=== PATIENT | male | born 1950 | race Caucasian/White ===

== ENCOUNTER 2016-12-03 18:49 | Inpatient (IN) | payer MEDICARE ==
[~2016-12-03] VITALS: Ht 172.7 cm; Wt 62.7 kg
[~2016-12-03 18:49] MED LIST: ACET-66 PO; FAMO20 PO; GABA-533 PO; HYD50 PO; HYDR-3965 PO; LEVE250T55 PO; LISI-662 PO; QUET25TA PO; RISP1 PO; SERT100T12 PO; SIMV-260 PO; TRAZ-144 PO
[2016-12-03] MEDS ORDERED: SERT100T12 PO (19:06)
[2016-12-03] MEDS ORDERED: FOLI1 PO (19:06)
[2016-12-03] MEDS ORDERED: LISI10TA7 PO (19:06)
[2016-12-03] MEDS ORDERED: FURO40 PO (19:06)
[2016-12-03] MEDS ORDERED: TAMS0.4C32 PO (19:06)
[2016-12-03] MEDS ORDERED: GABA-531 PO (19:06)
[2016-12-03] MEDS ORDERED: THIA100 PO (19:06)
[2016-12-03] MEDS ORDERED: ALBUTEROL SULFATE 5 MG/ML 20 ML NEB SOLN [BULK] NEB ONE (19:15)
[2016-12-03] MEDS ORDERED: FUROSEMIDE 40 MG/4 ML VIAL IVP ONE (19:15)
[2016-12-03] MEDS ORDERED: MethylPREDNISolone SOD SUCC 125 MG/2 ML VIAL IVP ONE (19:15)
[2016-12-03] MEDS ORDERED: ASPIRIN 325 MG TABLET PO ONE (19:15)
[2016-12-03] MEDS ORDERED: CefTRIAXone 1 GM/DEXTROSE 50 ML IV ONE (19:15)
[2016-12-03] MEDS ORDERED: IPRATROPIUM BROMIDE 0.5 MG/2.5 ML NEB SOLUTION NEB ONE (19:15)
[2016-12-03 19:22] LABS: BASOPHILS % (AUTO) 0.6 % (0.0-2.0); EOSINOPHILS % (AUTO) 3.1 % (1.0-6.0); HEMATOCRIT 35.5 % (41-53); HEMOGLOBIN 11.3 g/dL (13.5-17.5); LYMPHOCYTES # (AUTO) 1.4 K/uL (1.0-4.8); MEAN CORPUSCULAR HGB CONC 31.9 G/dL (31.0-37.0); MEAN CORPUSCULAR VOLUME 85 fL (80-100); MONOCYTES # (AUTO) 0.5 K/uL (0.1-1.0); MONOCYTES % (AUTO) 5.1 % (2.0-9.0); NEUTROPHILS # (AUTO) 7.7 K/uL (1.8-7.7); NEUTROPHILS % (AUTO) 77.2 % (40.0-70.0); PLATELET COUNT (AUTO) 270 K/uL (150-450); RED BLOOD CELL COUNT(AUTO) 4.19 MIL/uL (4.50-5.90); RED CELL DISTRIBUTION WIDTH 20.3 % (11.5-14.5)
[2016-12-03 19:31] LABS: ANION GAP 9 mmol/L (8-16); CALCIUM, TOTAL 8.7 mg/dL (8.8-10.5); CARBON DIOXIDE 24 mmol/L (22-29); CHLORIDE 105 mmol/L (98-107); CREATININE 0.96 mg/dL (0.60-1.30); GLOMERULAR FILTR. RATE CALC > 60 mL/min (>60); POTASSIUM 4.1 mmol/L (3.5-5.1); SODIUM SERUM 138 mmol/L (136-145); UREA NITROGEN, BLOOD 32 mg/dL (7-18)
[2016-12-03 19:36] LABS: RBC MORPHOLOGY COMMENT ABNORMAL RBC MORPH
[2016-12-03 19:37] LABS: ALANINE AMINOTRANSFERASE 24 U/L (12-78); ALBUMIN 3.6 g/dL (3.4-5.0); ASPARTATE AMINOTRANSFERASE 20 U/L (15-37); BILIRUBIN,TOTAL 0.7 mg/dL (0.1-1.0); TOTAL PROTEIN, SERUM 7.3 g/dL (6.4-8.2)
[2016-12-03 19:39] LABS: LACTIC ACID 1.3 mmol/L (0.4-2.0)
[2016-12-03 19:40] LABS: B-TYPE NATRIURETIC PEPTIDE 1470 pg/mL (0-100)
[2016-12-03 19:50] LABS: INFLUENZA TYPE B NEGATIVE FOR TYPE B (NEGATIVE)
[2016-12-03] MEDS ORDERED: 0.9% SODIUM CHLORIDE 10 ML SYRINGE IVP PRN (21:45)
[2016-12-03] MEDS ORDERED: ACETAMINOPHEN 325 MG TABLET PO PRN ×2 (21:45→23:00)
[2016-12-03] MEDS ORDERED: ONDANSETRON HCL 4 MG/2 ML VIAL IVP PRN ×2 (21:45→23:00)
[2016-12-03] MEDS ORDERED: QUEtiapine FUMARATE 25 MG TABLET PO PRN (23:00)
[2016-12-03] MEDS ORDERED: GuaiFENesin/D-METHORPHAN/PHENYLEPH 5 ML LIQUID ORAL.SYG PO PRN (23:00)
[2016-12-03] MEDS ORDERED: HydrOXYzine HCL 50 MG TABLET PO PRN (23:00)
[2016-12-03] MEDS ORDERED: ALBUTEROL SULFATE 2.5 MG/0.5 ML NEB SOLUTION NEB PRN (23:00)
[2016-12-03] MEDS: TraZODone HCL 50 MG TABLET PO SCH (23:00)
[2016-12-03] MEDS ORDERED: ALBUTEROL SULFATE 2.5 MG/0.5 ML NEB SOLUTION NEB SCH (23:00)
[2016-12-03] MEDS ORDERED: ZOLPIDEM TARTRATE 5 MG TABLET PO PRN (23:00)
[2016-12-03] MEDS ORDERED: MAGNESIUM HYDROXIDE SUSPENSION 30 ML UDCUP PO PRN (23:00)
[2016-12-03] MEDS ORDERED: IPRATROPIUM BROMIDE 0.5 MG/2.5 ML NEB SOLUTION NEB SCH (23:00)
[2016-12-03] MEDS ORDERED: IPRATROPIUM BROMIDE 0.5 MG/2.5 ML NEB SOLUTION NEB PRN (23:00)
[2016-12-03] MEDS ORDERED: BISACODYL 10 MG RECTAL RECTAL SUPPOSITORY PR PRN (23:00)
[2016-12-03 23:25] VITALS: BP 145/97
[2016-12-04] MEDS ORDERED: PNEUMOCOCCAL VACCINE POLYVALENT 0.5 ML VIAL [PPSV23] IM ONE (01:00)
[2016-12-04 04:02] LABS: APPEARANCE,URINE CLOUDY (CLEAR); GLUCOSE, URINE (UA) NEGATIVE (NEGATIVE); KETONES,URINE NEGATIVE (NEGATIVE); LEUKOCYTE ESTERASE ,URINE NEGATIVE (NEGATIVE); OCCULT BLOOD,URINE TRACE (NEGATIVE); PROTEIN,URINE NEGATIVE (NEGATIVE)
[2016-12-04 04:16] VITALS: BP 130/93
[2016-12-04 04:20] LABS: RBC,URINE 0-2 /HPF (0-2); SQUAMOUS EPITHELIAL CELL,UR Rare /LPF (None Seen); WBC,URINE None Seen /HPF (0-5)
[2016-12-04 06:45] LABS: EOSINOPHILS % (AUTO) 0.1 % (1.0-6.0); HEMATOCRIT 36.7 % (41-53); HEMOGLOBIN 11.7 g/dL (13.5-17.5); LYMPHOCYTES # (AUTO) 0.3 K/uL (1.0-4.8); LYMPHOCYTES % (AUTO) 3.3 % (22.0-44.0); MEAN CORPUSCULAR HEMOGLOBIN 26.8 pg (26.0-34.0); MEAN CORPUSCULAR HGB CONC 31.8 G/dL (31.0-37.0); MEAN CORPUSCULAR VOLUME 84 fL (80-100); MONOCYTES # (AUTO) 0.1 K/uL (0.1-1.0); MONOCYTES % (AUTO) 1.3 % (2.0-9.0); NEUTROPHILS # (AUTO) 9.1 K/uL (1.8-7.7); PLATELET COUNT (AUTO) 247 K/uL (150-450); RED BLOOD CELL COUNT(AUTO) 4.35 MIL/uL (4.50-5.90); RED CELL DISTRIBUTION WIDTH 20.2 % (11.5-14.5); WHITE BLOOD COUNT (AUTO) 9.6 K/uL (4.5-11.0)
[2016-12-04 07:08] VITALS: BP 131/89
[2016-12-04 07:09] LABS: NEUTROPHILS % (AUTO) 95.3 % (40.0-70.0); RBC MORPHOLOGY COMMENT ABNORMAL RBC MORPH
[2016-12-04 07:48] LABS: ALANINE AMINOTRANSFERASE 23 U/L (12-78); ALBUMIN 3.5 g/dL (3.4-5.0); ANION GAP 12 mmol/L (8-16); ASPARTATE AMINOTRANSFERASE 18 U/L (15-37); BILIRUBIN,TOTAL 0.6 mg/dL (0.1-1.0); CARBON DIOXIDE 25 mmol/L (22-29); CHLORIDE 103 mmol/L (98-107); CREATININE 1.16 mg/dL (0.60-1.30); GLOMERULAR FILTR. RATE CALC > 60 mL/min (>60); PHOSPHORUS 4.2 mg/dL (2.5-4.9); POTASSIUM 4.8 mmol/L (3.5-5.1); SODIUM SERUM 140 mmol/L (136-145); TOTAL PROTEIN, SERUM 7.3 g/dL (6.4-8.2); UREA NITROGEN, BLOOD 26 mg/dL (7-18)
[2016-12-04] MEDS ORDERED: GABAPENTIN 300 MG CAPSULE PO SCH (09:00)
[2016-12-04] MEDS ORDERED: MethylPREDNISolone SOD SUCC 125 MG/2 ML VIAL IVP SCH (09:00)
[2016-12-04] MEDS: TAMSULOSIN HCL 0.4 MG CAPSULE PO SCH (09:32)
[2016-12-04] MEDS: LISINOPRIL 10 MG TABLET PO SCH (09:32)
[2016-12-04] MEDS: LevETIRAcetam 250 MG TABLET PO SCH ×2 (09:32→21:14)
[2016-12-04] MEDS: FUROSEMIDE 40 MG TABLET PO SCH (09:32)
[2016-12-04] MEDS: HEPARIN SODIUM,PORCINE 5,000 UNITS/ML VIAL SQ SCH ×2 (09:32→21:14)
[2016-12-04] MEDS: SERTRALINE HCL 100 MG TABLET PO SCH (09:32)
[2016-12-04] MEDS: RisperiDONE 1 MG TABLET PO SCH ×3 (09:32→21:14)
[2016-12-04 11:11] VITALS: BP 139/87
[2016-12-04 15:11] VITALS: BP 128/82
[2016-12-04] MEDS: MethylPREDNISolone SOD SUCC 40 MG/ML VIAL IVP SCH ×2 (15:24→21:14)
[2016-12-04] MEDS: GABAPENTIN 300 MG CAPSULE PO SCH ×2 (15:25→21:14)
[2016-12-04] MEDS ORDERED: SODIUM CHLORIDE 0.9% 250 ML IV ONE (15:46)
[2016-12-04] MEDS: CefTRIAXone 1 GM/DEXTROSE 50 ML IV SCH (18:08)
[2016-12-04 19:43] VITALS: BP 110/73
[2016-12-04] MEDS: SIMVASTATIN 20 MG TABLET PO SCH (21:14)
[2016-12-04] MEDS: TraZODone HCL 50 MG TABLET PO SCH (21:14)
[2016-12-04 23:50] VITALS: BP 119/76
[2016-12-05 06:04] VITALS: BP 134/72
[2016-12-05 07:45] VITALS: BP 130/91
[2016-12-05] MEDS: LevETIRAcetam 250 MG TABLET PO SCH ×2 (08:00→20:33)
[2016-12-05] MEDS: SERTRALINE HCL 100 MG TABLET PO SCH (08:00)
[2016-12-05] MEDS: LISINOPRIL 10 MG TABLET PO SCH (08:00)
[2016-12-05] MEDS: RisperiDONE 1 MG TABLET PO SCH ×3 (08:00→20:33)
[2016-12-05] MEDS: TAMSULOSIN HCL 0.4 MG CAPSULE PO SCH (08:00)
[2016-12-05] MEDS: MethylPREDNISolone SOD SUCC 40 MG/ML VIAL IVP SCH ×3 (08:00→20:33)
[2016-12-05] MEDS: HEPARIN SODIUM,PORCINE 5,000 UNITS/ML VIAL SQ SCH ×2 (08:00→20:33)
[2016-12-05] MEDS: FUROSEMIDE 40 MG TABLET PO SCH (08:00)
[2016-12-05] MEDS: GABAPENTIN 300 MG CAPSULE PO SCH ×3 (08:00→20:33)
[2016-12-05 11:10] VITALS: BP 120/82
[2016-12-05 15:59] VITALS: BP 142/92
[2016-12-05] MEDS: CefTRIAXone 1 GM/DEXTROSE 50 ML IV SCH (18:14)
[2016-12-05 19:46] VITALS: BP 140/95
[2016-12-05] MEDS: SIMVASTATIN 20 MG TABLET PO SCH (20:33)
[2016-12-05] MEDS: TraZODone HCL 50 MG TABLET PO SCH (20:33)
[2016-12-05] MEDS: OxyCODONE HCL/ACETAMINOPHEN 5-325 MG TABLET PO PRN (20:34)
[2016-12-05 23:53] VITALS: BP 142/89
[2016-12-06] VITALS (7 sets, daily range): BP systolic 133–153; BP diastolic 71–110
[2016-12-06] MEDS: GABAPENTIN 300 MG CAPSULE PO SCH ×3 (08:23→20:41)
[2016-12-06] MEDS: LISINOPRIL 10 MG TABLET PO SCH (08:23)
[2016-12-06] MEDS: FUROSEMIDE 40 MG TABLET PO SCH (08:23)
[2016-12-06] MEDS: RisperiDONE 1 MG TABLET PO SCH ×3 (08:23→20:41)
[2016-12-06] MEDS: TAMSULOSIN HCL 0.4 MG CAPSULE PO SCH (08:23)
[2016-12-06] MEDS: MethylPREDNISolone SOD SUCC 40 MG/ML VIAL IVP SCH ×3 (08:23→20:42)
[2016-12-06] MEDS: LevETIRAcetam 250 MG TABLET PO SCH ×2 (08:23→20:41)
[2016-12-06] MEDS: HEPARIN SODIUM,PORCINE 5,000 UNITS/ML VIAL SQ SCH ×2 (08:23→20:42)
[2016-12-06] MEDS: SERTRALINE HCL 100 MG TABLET PO SCH (08:23)
[2016-12-06] MEDS: OxyCODONE HCL/ACETAMINOPHEN 5-325 MG TABLET PO PRN (08:23)
[2016-12-06] MEDS ORDERED: INDIUM IN-111 OXYQUINOLINE/.5MCL ISOTOPE 1 EA INJ INJ ONE (13:30)
[2016-12-06] MEDS: CefTRIAXone 1 GM/DEXTROSE 50 ML IV SCH (18:45)
[2016-12-06] MEDS: SIMVASTATIN 20 MG TABLET PO SCH (20:41)
[2016-12-06] MEDS: TraZODone HCL 50 MG TABLET PO SCH (20:41)
[2016-12-07] VITALS (8 sets, daily range): BP systolic 128–146; BP diastolic 80–108
[2016-12-07] MEDS: LISINOPRIL 10 MG TABLET PO SCH (06:17)
[2016-12-07] MEDS: HEPARIN SODIUM,PORCINE 5,000 UNITS/ML VIAL SQ SCH ×2 (08:27→21:20)
[2016-12-07] MEDS: TAMSULOSIN HCL 0.4 MG CAPSULE PO SCH (08:27)
[2016-12-07] MEDS: GABAPENTIN 300 MG CAPSULE PO SCH ×3 (08:27→21:20)
[2016-12-07] MEDS: LevETIRAcetam 250 MG TABLET PO SCH ×2 (08:27→21:19)
[2016-12-07] MEDS: FUROSEMIDE 40 MG TABLET PO SCH (08:27)
[2016-12-07] MEDS: RisperiDONE 1 MG TABLET PO SCH ×3 (08:27→21:20)
[2016-12-07] MEDS: PredniSONE 20 MG TABLET PO SCH (08:27)
[2016-12-07] MEDS: SERTRALINE HCL 100 MG TABLET PO SCH (08:27)
[2016-12-07] MEDS: CefTRIAXone 1 GM/DEXTROSE 50 ML IV SCH (18:48)
[2016-12-07] MEDS: TraZODone HCL 50 MG TABLET PO SCH (21:20)
[2016-12-07] MEDS: SIMVASTATIN 20 MG TABLET PO SCH (21:20)
[2016-12-08 04:52] VITALS: BP 138/90
[2016-12-08 07:21] VITALS: BP 144/105
[2016-12-08] MEDS: HEPARIN SODIUM,PORCINE 5,000 UNITS/ML VIAL SQ SCH (08:01)
[2016-12-08] MEDS: FUROSEMIDE 40 MG TABLET PO SCH (08:02)
[2016-12-08] MEDS: LISINOPRIL 10 MG TABLET PO SCH (08:02)
[2016-12-08] MEDS: RisperiDONE 1 MG TABLET PO SCH ×2 (08:02→15:24)
[2016-12-08] MEDS: TAMSULOSIN HCL 0.4 MG CAPSULE PO SCH (08:02)
[2016-12-08] MEDS: PredniSONE 20 MG TABLET PO SCH (08:02)
[2016-12-08] MEDS: LevETIRAcetam 250 MG TABLET PO SCH (08:02)
[2016-12-08] MEDS: GABAPENTIN 300 MG CAPSULE PO SCH ×2 (08:02→15:24)
[2016-12-08] MEDS: SERTRALINE HCL 100 MG TABLET PO SCH (08:03)
[2016-12-08 09:04] LABS: BASOPHILS # (AUTO) 0.01 K/uL (0.00-0.20); BASOPHILS % (AUTO) 0.1 % (0.0-2.0); EOSINOPHILS # (AUTO) 0.08 K/uL (0.00-0.70); EOSINOPHILS % (AUTO) 0.69 % (1.0-6.0); HEMATOCRIT 40.4 % (41-53); HEMOGLOBIN 13.2 g/dL (13.5-17.5); LYMPHOCYTES # (AUTO) 1.2 K/uL (1.0-4.8); LYMPHOCYTES % (AUTO) 10.2 % (22.0-44.0); MEAN CORPUSCULAR HEMOGLOBIN 27.1 pg (26.0-34.0); MEAN CORPUSCULAR HGB CONC 32.6 G/dL (31.0-37.0); MEAN CORPUSCULAR VOLUME 83 fL (80-100); MONOCYTES # (AUTO) 0.7 K/uL (0.1-1.0); MONOCYTES % (AUTO) 5.7 % (2.0-9.0); NEUTROPHILS # (AUTO) 9.7 K/uL (1.8-7.7); NEUTROPHILS % (AUTO) 83.4 % (40.0-70.0); PLATELET COUNT (AUTO) 247 K/uL (150-450); RED BLOOD CELL COUNT(AUTO) 4.87 MIL/uL (4.50-5.90); WHITE BLOOD COUNT (AUTO) 11.6 K/uL (4.5-11.0)
[2016-12-08 09:36] LABS: ALANINE AMINOTRANSFERASE 30 U/L (12-78); ALBUMIN 3.2 g/dL (3.4-5.0); ANION GAP 9 mmol/L (8-16); ASPARTATE AMINOTRANSFERASE 19 U/L (15-37); BILIRUBIN,TOTAL 0.5 mg/dL (0.1-1.0); CALCIUM, TOTAL 8.3 mg/dL (8.8-10.5); CARBON DIOXIDE 28 mmol/L (22-29); CHLORIDE 104 mmol/L (98-107); CREATININE 1.14 mg/dL (0.60-1.30); GLOMERULAR FILTR. RATE CALC > 60 mL/min (>60); POTASSIUM 3.5 mmol/L (3.5-5.1); SODIUM SERUM 141 mmol/L (136-145); TOTAL PROTEIN, SERUM 6.6 g/dL (6.4-8.2); UREA NITROGEN, BLOOD 39 mg/dL (7-18)
[2016-12-08 10:10] LABS: RBC MORPHOLOGY COMMENT ABNORMAL RBC MORPH
[2016-12-08 11:14] VITALS: BP 129/81
[2016-12-08] MEDS: OxyCODONE HCL/ACETAMINOPHEN 5-325 MG TABLET PO PRN (12:11)
[2016-12-08] MEDS ORDERED: AMOX1TAB16 PO (15:58)
[2016-12-08] MEDS ORDERED: IPRA4AER IH (15:59)
[2016-12-08 16:00] VITALS: BP 128/88
[2016-12-08] MEDS ORDERED: PRED5 PO ×2 (16:02→16:04)
== END 2016-12-08 18:50 | disposition home or self-care (01) | DRG 192 ==
LOC: EMS 18:50 → 5S 21:31
PROVIDERS: ADMIT Internal Medicine; ATTEND Internal Medicine
DX: J44.1 Chronic obstructive pulmonary disease with (acute) exacerbation (principal); E78.5 Hyperlipidemia, unspecified; N40.0 Benign prostatic hyperplasia without lower urinary tract symptoms; G40.909 Epilepsy, unspecified, not intractable, without status epilepticus; F32.9 Major depressive disorder, single episode, unspecified; N50.89 Other specified disorders of the male genital organs; F15.10 Other stimulant abuse, uncomplicated; F25.9 Schizoaffective disorder, unspecified; I50.9 Heart failure, unspecified; K21.9 Gastro-esophageal reflux disease without esophagitis; N43.3 Hydrocele, unspecified; I25.10 Atherosclerotic heart disease of native coronary artery without angina pectoris; F17.210 Nicotine dependence, cigarettes, uncomplicated; G62.9 Polyneuropathy, unspecified; I11.0 Hypertensive heart disease with heart failure; M79.89 Other specified soft tissue disorders; M19.90 Unspecified osteoarthritis, unspecified site; Z79.1 Long term (current) use of non-steroidal anti-inflammatories (NSAID); Z79.891 Long term (current) use of opiate analgesic; Z79.899 Other long term (current) drug therapy; Z90.49 Acquired absence of other specified parts of digestive tract
CPT/HCPCS: 76870; 78806; 83605; 83735; 84100; 87040; 87081; 87804; 90471; 93005; 94640; 94644; 96365; 96375; 99285; A9547; G0480; J0696; J1644; J1940; J2920; J2930; J7050

== ENCOUNTER 2016-12-12 02:50 | Emergency (ER) | payer MEDICARE ==
[~2016-12-12] VITALS: Ht 175.3 cm; Wt 61.0 kg
[~2016-12-12 02:50] MED LIST changes: +AMOX1TAB16 PO; +FOLI1 PO; +FURO40 PO; +GABA-531 PO; -GABA-533 PO; +IPRA4AER IH; -LISI-662 PO; +PRED5 PO; +TAMS0.4C32 PO; +THIA100 PO
[2016-12-12] MEDS ORDERED: ACET1TAB12 PO (03:11)
[2016-12-12] MEDS ORDERED: LISI-661 PO (03:11)
[2016-12-12] MEDS ORDERED: BACL10TA PO (03:11)
[2016-12-12] MEDS ORDERED: AMOX TR/POT CLAV 875 MG/125 MG TABLET PO ONE (04:45)
[2016-12-12 05:20] VITALS: BP 138/92
== END 2016-12-12 06:30 | disposition home or self-care (01) ==
LOC: EMS 02:51
DX: L03.032 Cellulitis of left toe (principal); I11.0 Hypertensive heart disease with heart failure; I50.9 Heart failure, unspecified; J44.9 Chronic obstructive pulmonary disease, unspecified; I25.10 Atherosclerotic heart disease of native coronary artery without angina pectoris; F15.90 Other stimulant use, unspecified, uncomplicated; F17.210 Nicotine dependence, cigarettes, uncomplicated
CPT/HCPCS: 99283

== ENCOUNTER 2018-01-07 13:08 | Emergency (ER) | payer MEDICARE, SELFPAY ==
[~2018-01-07] VITALS: Ht 172.7 cm; Wt 61.4 kg
[~2018-01-07 13:08] MED LIST changes: -ACET-66 PO; +ACET-784 PO; +ACET1TAB12 PO; -AMOX1TAB16 PO; +BACL10TA PO; +CEPH-582 PO; -FAMO20 PO; -FOLI1 PO; -HYD50 PO; -HYDR-3965 PO; -IPRA4AER IH; -LEVE250T55 PO; +LISI-661 PO; -PRED5 PO; -QUET25TA PO; -RISP1 PO; -SIMV-260 PO
[2018-01-07 14:28] LABS: APPEARANCE,URINE CLOUDY (CLEAR); BILIRUBIN,URINE NEGATIVE (NEGATIVE); GLUCOSE, URINE (UA) NEGATIVE (NEGATIVE); KETONES,URINE NEGATIVE (NEGATIVE); LEUKOCYTE ESTERASE ,URINE MODERATE (NEGATIVE); NITRATE,URINE NEGATIVE (NEGATIVE); OCCULT BLOOD,URINE LARGE (NEGATIVE); PROTEIN,URINE POS 1+ (NEGATIVE); UROBILINOGEN,URINE 0.2 mg/dL (<=1.0)
[2018-01-07 14:44] LABS: BACTERIA,URINE Few /HPF (None Seen); SQUAMOUS EPITHELIAL CELL,UR Few /LPF (None Seen); WBC,URINE 26-50 /HPF (0-5)
[2018-01-07 14:45] LABS: RBC,URINE 26-50 /HPF (0-2)
[2018-01-07 15:20] VITALS: BP 158/103
== END 2018-01-07 16:03 | disposition home or self-care (01) ==
LOC: EMS 13:09
DX: N39.0 Urinary tract infection, site not specified (principal); N40.1 Benign prostatic hyperplasia with lower urinary tract symptoms; I11.0 Hypertensive heart disease with heart failure; I50.9 Heart failure, unspecified; I25.10 Atherosclerotic heart disease of native coronary artery without angina pectoris; J44.9 Chronic obstructive pulmonary disease, unspecified; F17.210 Nicotine dependence, cigarettes, uncomplicated
CPT/HCPCS: 51702; 87086; 99284

== ENCOUNTER 2018-05-31 23:34 | Emergency (ER) | payer MEDICARE ==
[~2018-05-31] VITALS: Ht 175.3 cm; Wt 66.0 kg
[~2018-05-31 23:34] MED LIST changes: -BACL10TA PO; -CEPH-582 PO; -THIA100 PO; +THIA100T67 PO; -TRAZ-144 PO; +TRAZ-219 PO
[2018-06-01 01:52] LABS: APPEARANCE,URINE TURBID (CLEAR); BILIRUBIN,URINE NEGATIVE (NEGATIVE); GLUCOSE, URINE (UA) NEGATIVE (NEGATIVE); KETONES,URINE NEGATIVE (NEGATIVE); LEUKOCYTE ESTERASE ,URINE LARGE (NEGATIVE); NITRATE,URINE POSITIVE (NEGATIVE); OCCULT BLOOD,URINE LARGE (NEGATIVE); PROTEIN,URINE SEE CONFIRM (NEGATIVE)
[2018-06-01 01:58] LABS: WBC,URINE >100 /HPF (0-5)
[2018-06-01 01:59] LABS: BACTERIA,URINE Many /HPF (None Seen); RBC,URINE 51-100 /HPF (0-2); SQUAMOUS EPITHELIAL CELL,UR None Seen /LPF (None Seen)
[2018-06-01 02:02] LABS: SULFOSALICYLIC ACID,URINE 3+ (Negative)
[2018-06-01] MEDS ORDERED: DOXYCYCLINE HYCLATE 100 MG CAPSULE PO ONE (02:30)
[2018-06-01] MEDS ORDERED: TAMSULOSIN HCL 0.4 MG CAPSULE PO ONE (03:45)
[2018-06-01 04:54] VITALS: BP 154/81
== END 2018-06-01 05:04 | disposition home or self-care (01) ==
LOC: EMS 23:36
DX: N39.0 Urinary tract infection, site not specified (principal); N40.0 Benign prostatic hyperplasia without lower urinary tract symptoms; N43.3 Hydrocele, unspecified; I11.0 Hypertensive heart disease with heart failure; I50.9 Heart failure, unspecified; I25.10 Atherosclerotic heart disease of native coronary artery without angina pectoris; J44.9 Chronic obstructive pulmonary disease, unspecified; F32.9 Major depressive disorder, single episode, unspecified; F15.90 Other stimulant use, unspecified, uncomplicated; F17.210 Nicotine dependence, cigarettes, uncomplicated; Z79.899 Other long term (current) drug therapy
CPT/HCPCS: 76870; 87086; 99285

== ENCOUNTER 2019-01-01 01:40 | Emergency (ER) | payer MEDICARE ==
[~2019-01-01] VITALS: Ht 170.2 cm; Wt 77.3 kg
[~2019-01-01 01:40] MED LIST changes: -ACET1TAB12 PO; +ASPI81TA87 PO; +DOCU60SY6 PO; +MERO1PIG IVPB; +METO25XL PO; -TRAZ-219 PO; +TRAZ-220 PO
[2019-01-01] MEDS ORDERED: METO-558 PO (02:00)
[2019-01-01] MEDS ORDERED: LISI-662 PO (02:00)
[2019-01-01] MEDS ORDERED: LEVO25TA9 PO (02:00)
[2019-01-01] MEDS ORDERED: KETOROLAC TROMETHAMINE 60 MG/2 ML VIAL IM ONE (02:15)
[2019-01-01] MEDS ORDERED: LIDOCAINE 2% 5 ML JELLY TP ONE (02:30)
[2019-01-01 03:48] LABS: APPEARANCE,URINE CLOUDY (CLEAR); BILIRUBIN,URINE NEGATIVE (NEGATIVE); GLUCOSE, URINE (UA) NEGATIVE (NEGATIVE); KETONES,URINE NEGATIVE (NEGATIVE); LEUKOCYTE ESTERASE ,URINE LARGE (NEGATIVE); NITRATE,URINE POSITIVE (NEGATIVE); OCCULT BLOOD,URINE LARGE (NEGATIVE); PROTEIN,URINE NEGATIVE (NEGATIVE)
[2019-01-01 03:58] LABS: BACTERIA,URINE Many /HPF (None Seen); SQUAMOUS EPITHELIAL CELL,UR None Seen /LPF (None Seen); WBC,URINE 51-100 /HPF (0-5)
[2019-01-01] MEDS ORDERED: CefTRIAXone SODIUM 1 GM/VIAL IM ONE (04:00)
[2019-01-01] MEDS ORDERED: LIDOCAINE/PF 1% 2 ML VIAL IM ONE (04:00)
[2019-01-01 04:22] VITALS: BP 117/67
== END 2019-01-01 04:49 | disposition home or self-care (01) ==
LOC: EMS 01:40
DX: T19.4XXA Foreign body in penis, initial encounter (principal); N39.0 Urinary tract infection, site not specified; N43.3 Hydrocele, unspecified; I11.0 Hypertensive heart disease with heart failure; I50.9 Heart failure, unspecified; J44.9 Chronic obstructive pulmonary disease, unspecified; F32.9 Major depressive disorder, single episode, unspecified; F17.210 Nicotine dependence, cigarettes, uncomplicated; F12.90 Cannabis use, unspecified, uncomplicated; F19.90 Other psychoactive substance use, unspecified, uncomplicated; Z90.49 Acquired absence of other specified parts of digestive tract; Z79.899 Other long term (current) drug therapy; Z79.82 Long term (current) use of aspirin; W22.8XXA Striking against or struck by other objects, initial encounter; Y93.89 Activity, other specified; Y92.89 Other specified places as the place of occurrence of the external cause; Y99.8 Other external cause status
CPT/HCPCS: 51702; 81001; 87077; 87086; 87186; 96372; 99284; J0696; J1885; J3490